=== PATIENT | male | born 1950 | race Native Hawaiian/Other Pacific Islander ===

== ENCOUNTER 2017-08-26 21:21 | Emergency (ER) | payer OTHER ==
[~2017-08-26] VITALS: Ht 167.6 cm; Wt 63.5 kg
[2017-08-26 21:10] VITALS: BP 93/52; TEMP 96.8
[~2017-08-26 21:21] MED LIST: AMLO2.5T PO; ATIVAN2 MG PO; BENZTROPINE2 MG PO; DEPAKOTE DR PO; DIVA500T2 PO; HALO50IN4 IM; HALO5INJ3 IM; HYDR25TA60 PO; LORA2INJ21 IM; METAMUCIL0.52 GM PO; OMEP20CA PO; PROZAC10 MG PO; QUET100T2 PO; RISPERDAL3 MG PO; ZIPR20IN IM; [UNRECOGNIZED DRUG - OTHER] IJ
[2017-08-26 22:02] LABS: PLATELET COUNT 250 K/uL (142-355)
[2017-08-26 22:25] LABS: POTASSIUM 4.4 mmol/L (3.6-5.2)
[2017-08-27] MEDS ORDERED: OMEP20CA PO (02:53)
[2017-08-27] MEDS ORDERED: FLUOXETINE20 M1 PO (02:55)
[2017-08-27] MEDS ORDERED: MULTI VITAMIN A1 TAB PO (02:56)
[2017-08-27] MEDS ORDERED: BENZTROPINE2 MG PO (02:57)
[2017-08-27] MEDS ORDERED: CLON0.5T36 PO (02:57)
[2017-08-27] MEDS ORDERED: MAGNESIUM-OX400 MG PO (02:58)
[2017-08-27] MEDS ORDERED: VALPROIC A250 MG/5 M PO (03:00)
[2017-08-27] MEDS ORDERED: ZIPRASIDONE HCL80 MG PO (03:00)
[2017-08-27] MEDS ORDERED: BENZ1TAB43 PO (03:01)
== END 2017-08-26 22:18 | disposition other institution (70) ==
LOC: ED 21:21
DX: F20.89 Other schizophrenia (principal); R46.89 Other symptoms and signs involving appearance and behavior; Z04.6 Encounter for general psychiatric examination, requested by authority
CPT/HCPCS: 36415; 80053; 85027; 93005; 99285

== ENCOUNTER 2021-11-02 16:05 | Emergency (ER) | payer OTHER ==
[~2021-11-02] VITALS: Ht 167.6 cm; Wt 55.3 kg
[2021-11-02 16:05] VITALS: BP 144/80; TEMP 98
[~2021-11-02 16:05] MED LIST changes: +AMANTADINE100 MG PO; +ARIPIPRAZOLE10 MG PO; +BENZ1TAB43 PO; +CLON0.5T36 PO; +DIPH50IN IM; +FLUOXETINE20 M1 PO; +FLUOXETINE20 MG PO; +MAGNESIUM-OX400 MG PO; +MAGNSUS68 PO; +MEDR2.5T19 PO; +MULTI VITAMIN A1 TAB PO; +NITR100C56 PO; +OXCARBAZEPIN300 MG PO; +QUET25TA2 PO; +QUET300T PO; +VALPROIC A250 MG/5 M PO; +VALPROIC ACID10 ML PO; +ZIPRASIDONE HCL80 MG PO
[2021-11-02 16:49] LABS: PLATELET COUNT 343 K/uL (142-355)
[2021-11-02 16:56] LABS: POTASSIUM 3.8 mmol/L (3.6-5.2)
[2021-11-02] MEDS ORDERED: AMLODIPINE BESYLATE PO (18:14)
[2021-11-02] MEDS ORDERED: MAGNESIUM OXID400 M1 PO ×2 (18:14→18:15)
[2021-11-02] MEDS ORDERED: PANTOPRAZOLE 40MG TA PO (18:16)
[2021-11-02] MEDS ORDERED: OMEP20CA PO (18:16)
[2021-11-02] MEDS ORDERED: VITAMIN D325 MCG PO (18:17)
[2021-11-02] MEDS ORDERED: QUETIAPINE200 MG PO ×2 (18:20→18:28)
[2021-11-02] MEDS ORDERED: BENZTROPINE2 MG PO (18:24)
[2021-11-02] MEDS ORDERED: MEDR10TA4 PO (18:25)
[2021-11-02] MEDS ORDERED: OXCARBAZEPIN600 MG PO (18:26)
[2021-11-02] MEDS ORDERED: AMANTADINE100 MG PO (18:29)
[2021-11-02] MEDS ORDERED: CARB25TA29 PO (18:31)
[2021-11-02] MEDS ORDERED: VALPROIC A250 MG/5 M PO (18:32)
[2021-11-02] MEDS ORDERED: HALO5INJ3 INJ (18:34)
[2021-11-02] MEDS ORDERED: IMODIUM A-D2 MG PO (18:35)
[2021-11-02] MEDS ORDERED: TYLENOL325 MG PO (18:36)
[2021-11-02] MEDS ORDERED: ONDA4TAB3 PO (18:37)
== END 2021-11-02 17:16 | disposition still patient (30) ==
LOC: ED 16:13
PROVIDERS: Emergency Medicine
DX: F25.8 Other schizoaffective disorders (principal); R45.1 Restlessness and agitation; Z04.6 Encounter for general psychiatric examination, requested by authority; Z11.52 Encounter for screening for COVID-19
CPT/HCPCS: 36415; 80053; 81002; 85027; 87635; 99283; U0003